=== PATIENT | female | born 1975 | race Hispanic/Latino ===

== ENCOUNTER 2020-09-24 12:49 | Inpatient (IN) | payer OTHER ==
[~2020-09-24] VITALS: Ht 152.4 cm; Wt 101.6 kg
[2020-09-24] VITALS (8 sets, daily range): BP systolic 82–112; BP diastolic 56–77
[2020-09-24] MEDS ORDERED: PANTOPRAZOLE 40 MG/VIAL ONE (13:54)
[2020-09-24] MEDS ORDERED: OCTREOTIDE ACETATE 100 MCG/ML AMP ONE (13:55)
[2020-09-24] MEDS ORDERED: PANTOPRAZOLE 40 MG/VIAL IVP ONE (14:00)
[2020-09-24] MEDS ORDERED: OCTREOTIDE ACETATE 100 MCG/ML AMP IVP ONE (14:00)
[2020-09-24] MEDS ORDERED: OCTREOTIDE ACETATE 200 MCG/ML 5 ML VIAL ONE (14:01)
[2020-09-24 14:08] LABS: BASOPHILS % (AUTO) 0.2 % (0.0-5.0); EOSINOPHILS % (AUTO) 0.2 % (0.0-8.0); HEMATOCRIT 21.7 % (36-48); LYMPHOCYTES % (AUTO) 13.6 % (21.0-51.0); MEAN CORPUSCULAR HEMOGLOBIN 33.7 pg (27.0-33.0); MEAN CORPUSCULAR HGB CONC 32.3 g/dL (32.0-36.0); MEAN CORPUSCULAR VOLUME 104.3 fL (79-99); MONOCYTES % (AUTO) 5.1 % (3.0-13.0); NEUTROPHILS % (AUTO) 79.9 % (40.0-77.0); PLATELET COUNT (AUTO) 56 K/uL (130-400); RED BLOOD CELL COUNT(AUTO) 2.08 MIL/uL (4.00-5.50)
[2020-09-24 14:14] LABS: CREATININE 0.6 mg/dL (0.5-1.5); POTASSIUM 4.5 mmol/L (3.5-5.1)
[2020-09-24 14:19] LABS: ALBUMIN 1.7 g/dL (3.5-5.0); BILIRUBIN,TOTAL 1.6 mg/dL (0.2-1.0); TOTAL PROTEIN, SERUM 4.8 g/dL (6.0-8.3)
[2020-09-24] MEDS: OCTREOTIDE ACETATE 1,250 MCG in DEXTROSE 5%-WATER 250 ML IV SCH ×2 (14:20→21:44)
[2020-09-24] MEDS: PANTOPRAZOLE 40MG INJ 80 MG in 0.9%NACL 100ML 100 ML IV SCH ×2 (14:21→21:44)
[2020-09-24 14:53] LABS: INR 1.7 (0.85-1.15); PROTHROMBIN TIME 17.7 SEC (9.6-11.6)
[2020-09-24 14:54] LABS: PARTIAL THROMBOPLASTIN TIME 37.9 SEC (26.3-35.5)
[2020-09-24] MEDS ORDERED: 0.9%NACL 1000ML 1,000 ML IV ONE (15:00)
[2020-09-24] MEDS ORDERED: ONDANSETRON 4MG INJ IVP ONE (15:00)
[2020-09-24] MEDS ORDERED: ONDANSETRON 4MG INJ IVP SCH (15:30)
[2020-09-24] MEDS ORDERED: FENTANYL CITRATE PF 50 MCG/1 ML 2ML VIAL IVP SCH (15:30)
[2020-09-24] MEDS ORDERED: EPINEPHRINE PF 1MG AMP ONE (16:58)
[2020-09-24] MEDS ORDERED: SIMETHICONE 40 MG/0.6 ML ML ONE (16:59)
[2020-09-24] MEDS ORDERED: SUCCINYLCHOLINE CHLORIDE 20 MG/ML 10 ML VIAL ONE (17:03)
[2020-09-24] MEDS ORDERED: KETAMINE 50MG/ML SYRINGE 50 MG/ML DISP.SYRIN IV ONE (17:03)
[2020-09-24 18:00] LABS: HEMATOCRIT 24.7 % (36-48)
[2020-09-24 19:37] LABS: INR 1.76 (0.85-1.15); PROTHROMBIN TIME 18.2 SEC (9.6-11.6)
[2020-09-24 19:38] LABS: PARTIAL THROMBOPLASTIN TIME 43.6 SEC (26.3-35.5)
[2020-09-24] MEDS ORDERED: PHYTONADIONE 10 MG/1 ML AMP SQ ONE (20:00)
[2020-09-24] MEDS: LACTATED RINGERS 1000ML 1,000 ML IV SCH ×2 (20:00→22:45)
[2020-09-24] MEDS: ZOSYN 3.375GM+NS 50ML 50 ML IV SCH (20:08)
[2020-09-24] MEDS: MORPHINE 2 MG SYG IVP PRN (21:43)
[2020-09-24 22:39] LABS: HEMATOCRIT 21.5 % (36-48); MEAN CORPUSCULAR HEMOGLOBIN 31.1 pg (27.0-33.0); MEAN CORPUSCULAR VOLUME 91.5 fL (79-99); RED BLOOD CELL COUNT(AUTO) 2.35 MIL/uL (4.00-5.50); RED CELL DISTRIBUTION WIDTH 17.6 % (11.0-15.5); WHITE BLOOD COUNT (AUTO) 8.2 K/uL (4.8-10.8)
[2020-09-24 22:51] LABS: CREATININE 0.5 mg/dL (0.5-1.5); MAGNESIUM 1.4 mg/dL (1.80-2.40); POTASSIUM 4.5 mmol/L (3.5-5.1)
[2020-09-24] MEDS ORDERED: CALCIUM GLUC 1GM VIAL IV SCH (23:30)
[2020-09-24] MEDS ORDERED: CALCIUM GLUC 1GM VIAL 1 GM in 0.9%NACL 100ML 100 ML IV ONE (23:30)
[2020-09-24] MEDS ORDERED: CALCIUM GLUC 1GM VIAL IV ONE (23:31)
[2020-09-25] VITALS (21 sets, daily range): BP systolic 99–134; BP diastolic 48–88
[2020-09-25] MEDS: MAGNESIUM 2GM PREMIX 50ML 50 ML IV PRN (00:02)
[2020-09-25] MEDS ORDERED: ONDANSETRON 4MG INJ ONE ×2 (03:04→20:09)
[2020-09-25] MEDS: LACTATED RINGERS 1000ML 1,000 ML IV SCH ×5 (03:33→22:27)
[2020-09-25] MEDS: ZOSYN 3.375GM+NS 50ML 50 ML IV SCH ×3 (04:42→20:14)
[2020-09-25] MEDS: MORPHINE 2 MG SYG IVP PRN ×3 (04:48→19:00)
[2020-09-25 05:11] LABS: HEMATOCRIT 22.8 % (36-48)
[2020-09-25 05:27] LABS: INR 1.49 (0.85-1.15); PROTHROMBIN TIME 15.7 SEC (9.6-11.6)
[2020-09-25 05:28] LABS: PARTIAL THROMBOPLASTIN TIME 35.3 SEC (26.3-35.5)
[2020-09-25 05:34] LABS: ALBUMIN 1.8 g/dL (3.5-5.0); BILIRUBIN,TOTAL 3.4 mg/dL (0.2-1.0); CREATININE 0.6 mg/dL (0.5-1.5); POTASSIUM 4.7 mmol/L (3.5-5.1); TOTAL PROTEIN, SERUM 4.3 g/dL (6.0-8.3)
[2020-09-25 06:57] LABS: MAGNESIUM 1.8 mg/dL (1.80-2.40)
[2020-09-25 08:58] LABS: HEMOGLOBIN A1C 5.2 % (4.0-6.0)
[2020-09-25] MEDS ORDERED: PANTOPRAZOLE 40MG INJ 80 MG in 0.9%NACL 100ML 100 ML IV SCH (09:00)
[2020-09-25 10:07] LABS: HEMATOCRIT 23.6 % (36-48)
[2020-09-25] MEDS: PANTOPRAZOLE 40MG INJ 80 MG in 0.9%NACL 100ML 100 ML IV SCH ×2 (10:26→22:27)
[2020-09-25] MEDS ORDERED: MAGNESIUM 2GM PREMIX 50ML 50 ML IV PRN (16:30)
[2020-09-25 22:49] LABS: HEMATOCRIT 22.6 % (36-48)
[2020-09-25] MEDS ORDERED: ALBUTEROL INHALER 90MCG/INH IH PRN (23:30)
[2020-09-26] VITALS (18 sets, daily range): BP systolic 99–135; BP diastolic 55–85
[2020-09-26] MEDS ORDERED: IPRATROPIUM/ALBUTEROL SULFATE 3 ML SOLUTION IH ONE
[2020-09-26] MEDS: MORPHINE 2 MG SYG IVP PRN ×3 (00:58→19:39)
[2020-09-26] MEDS: LACTATED RINGERS 1000ML 1,000 ML IV SCH ×4 (04:00→19:00)
[2020-09-26 04:23] LABS: MEAN CORPUSCULAR HEMOGLOBIN 30.4 pg (27.0-33.0); MEAN CORPUSCULAR HGB CONC 33.3 g/dL (32.0-36.0); MEAN CORPUSCULAR VOLUME 91.3 fL (79-99); NUCLEATED RED BLOOD CELLS 0.3 % (0.0-0.19); RED BLOOD CELL COUNT(AUTO) 2.3 MIL/uL (4.00-5.50); RED CELL DISTRIBUTION WIDTH 17.8 % (11.0-15.5); WHITE BLOOD COUNT (AUTO) 9.4 K/uL (4.8-10.8)
[2020-09-26] MEDS: ZOSYN 3.375GM+NS 50ML 50 ML IV SCH ×3 (04:42→19:57)
[2020-09-26 05:45] LABS: ALBUMIN 1.8 g/dL (3.5-5.0); BILIRUBIN,TOTAL 1.8 mg/dL (0.2-1.0); CREATININE 0.6 mg/dL (0.5-1.5); POTASSIUM 4.5 mmol/L (3.5-5.1); TOTAL PROTEIN, SERUM 4.4 g/dL (6.0-8.3)
[2020-09-26] MEDS: PANTOPRAZOLE 40MG INJ 80 MG in 0.9%NACL 100ML 100 ML IV SCH ×2 (06:00→16:42)
[2020-09-26 06:13] LABS: HEPATITIS A ANTIBODY IGM Negative (Negative); HEPATITIS B CORE IGM Negative (Negative); HEPATITIS Bs ANTIGEN SCREEN P Negative (Negative)
[2020-09-26] MEDS: MAGNESIUM 2GM PREMIX 50ML 50 ML IV PRN (09:31)
[2020-09-27] VITALS (11 sets, daily range): BP systolic 90–108; BP diastolic 57–71
[2020-09-27] MEDS: PANTOPRAZOLE 40MG INJ 80 MG in 0.9%NACL 100ML 100 ML IV SCH ×3 (02:00→17:24)
[2020-09-27 03:58] LABS: BASOPHILS % (AUTO) 0.3 % (0.0-5.0); EOSINOPHILS % (AUTO) 0.3 % (0.0-8.0); LYMPHOCYTES % (AUTO) 16.4 % (21.0-51.0); MEAN CORPUSCULAR HEMOGLOBIN 31.3 pg (27.0-33.0); MEAN CORPUSCULAR HGB CONC 33.3 g/dL (32.0-36.0); MEAN CORPUSCULAR VOLUME 93.8 fL (79-99); MONOCYTES % (AUTO) 8.8 % (3.0-13.0); NEUTROPHILS % (AUTO) 72.7 % (40.0-77.0); PLATELET COUNT (AUTO) 40 K/uL (130-400); RED BLOOD CELL COUNT(AUTO) 2.08 MIL/uL (4.00-5.50); WHITE BLOOD COUNT (AUTO) 6.8 K/uL (4.8-10.8)
[2020-09-27 04:02] LABS: HEMATOCRIT 19.5 % (36-48)
[2020-09-27 04:10] LABS: ALBUMIN 1.7 g/dL (3.5-5.0); BILIRUBIN,TOTAL 1.4 mg/dL (0.2-1.0); CREATININE 0.5 mg/dL (0.5-1.5); POTASSIUM 3.9 mmol/L (3.5-5.1); TOTAL PROTEIN, SERUM 4.2 g/dL (6.0-8.3)
[2020-09-27 04:11] LABS: INR 1.48 (0.85-1.15); PROTHROMBIN TIME 15.6 SEC (9.6-11.6)
[2020-09-27 04:22] LABS: % IRON SATURATION 23.4 % (22-44)
[2020-09-27] MEDS: LACTATED RINGERS 1000ML 1,000 ML IV SCH ×5 (05:00→21:58)
[2020-09-27] MEDS: MORPHINE 2 MG SYG IVP PRN ×3 (05:26→21:58)
[2020-09-27] MEDS: ZOSYN 3.375GM+NS 50ML 50 ML IV SCH ×3 (08:29→23:56)
[2020-09-27] MEDS ORDERED: COMPOUND IV REFRIGERATED 1 EACH IVSOLN MISC PRN (15:00)
[2020-09-27] MEDS: OCTREOTIDE ACETATE 1,250 MCG in DEXTROSE 5%-WATER 250 ML IV SCH (23:57)
[2020-09-28] VITALS (7 sets, daily range): BP systolic 94–114; BP diastolic 59–75
[2020-09-28] MEDS: LACTATED RINGERS 1000ML 1,000 ML IV SCH ×4 (00:11→16:28)
[2020-09-28] MEDS ORDERED: 0.9%NACL 50ML 50 ML IV ONE ×2 (04:38→20:13)
[2020-09-28 04:39] LABS: BASOPHILS % (AUTO) 0.3 % (0.0-5.0); EOSINOPHILS % (AUTO) 0.8 % (0.0-8.0); HEMATOCRIT 24.1 % (36-48); LYMPHOCYTES % (AUTO) 16.2 % (21.0-51.0); MEAN CORPUSCULAR HEMOGLOBIN 30.7 pg (27.0-33.0); MEAN CORPUSCULAR HGB CONC 32.8 g/dL (32.0-36.0); MEAN CORPUSCULAR VOLUME 93.8 fL (79-99); MONOCYTES % (AUTO) 8.5 % (3.0-13.0); NEUTROPHILS % (AUTO) 72.8 % (40.0-77.0); NUCLEATED RED BLOOD CELLS 0.6 % (0.0-0.19); PLATELET COUNT (AUTO) 35 K/uL (130-400); RED BLOOD CELL COUNT(AUTO) 2.57 MIL/uL (4.00-5.50); RED CELL DISTRIBUTION WIDTH 20.1 % (11.0-15.5); WHITE BLOOD COUNT (AUTO) 6.6 K/uL (4.8-10.8)
[2020-09-28] MEDS: ZOSYN 3.375GM+NS 50ML 50 ML IV SCH ×3 (05:30→20:10)
[2020-09-28] MEDS: PANTOPRAZOLE 40MG INJ 80 MG in 0.9%NACL 100ML 100 ML IV SCH ×2 (10:32→17:25)
[2020-09-28] MEDS: MORPHINE 2 MG SYG IVP PRN ×2 (10:33→20:11)
[2020-09-28] MEDS ORDERED: 0.9%NACL 100ML 100 ML ONE (12:30)
[2020-09-28] MEDS ORDERED: FUROSEMIDE 20 MG TABLET PO ONE (18:00)
[2020-09-28] MEDS ORDERED: SPIRONOLACTONE 25 MG TAB PO SCH (18:00)
[2020-09-28] MEDS: MIDODRINE HCL 5 MG TABLET PO SCH (20:10)
[2020-09-28] MEDS: PANTOPRAZOLE 40 MG/VIAL IVP SCH (20:10)
[2020-09-28] MEDS: TRAZODONE HCL 100 MG TABLET PO SCH (20:10)
[2020-09-29 03:49] LABS: BASOPHILS % (AUTO) 0.3 % (0.0-5.0); EOSINOPHILS % (AUTO) 3.6 % (0.0-8.0); HEMATOCRIT 22.9 % (36-48); LYMPHOCYTES % (AUTO) 23.1 % (21.0-51.0); MEAN CORPUSCULAR HEMOGLOBIN 31.4 pg (27.0-33.0); MEAN CORPUSCULAR HGB CONC 33.2 g/dL (32.0-36.0); MEAN CORPUSCULAR VOLUME 94.6 fL (79-99); MONOCYTES % (AUTO) 8.7 % (3.0-13.0); NEUTROPHILS % (AUTO) 63.4 % (40.0-77.0); NUCLEATED RED BLOOD CELLS 0.6 % (0.0-0.19); PLATELET COUNT (AUTO) 30 K/uL (130-400); RED BLOOD CELL COUNT(AUTO) 2.42 MIL/uL (4.00-5.50); RED CELL DISTRIBUTION WIDTH 20.9 % (11.0-15.5); WHITE BLOOD COUNT (AUTO) 3.3 K/uL (4.8-10.8)
[2020-09-29 03:59] VITALS: BP 105/98
[2020-09-29 03:59] LABS: INR 1.61 (0.85-1.15); PROTHROMBIN TIME 16.8 SEC (9.6-11.6)
[2020-09-29 04:00] LABS: PARTIAL THROMBOPLASTIN TIME 37.9 SEC (26.3-35.5)
[2020-09-29 04:02] LABS: ALBUMIN 1.7 g/dL (3.5-5.0); BILIRUBIN,TOTAL 1.4 mg/dL (0.2-1.0); CREATININE 0.7 mg/dL (0.5-1.5); POTASSIUM 3.6 mmol/L (3.5-5.1); TOTAL PROTEIN, SERUM 4.4 g/dL (6.0-8.3)
[2020-09-29] MEDS ORDERED: 0.9%NACL 50ML 50 ML IV ONE ×2 (04:03→19:31)
[2020-09-29] MEDS: ZOSYN 3.375GM+NS 50ML 50 ML IV SCH ×3 (04:04→20:27)
[2020-09-29 08:05] VITALS: BP 90/51
[2020-09-29] MEDS: PANTOPRAZOLE 40 MG/VIAL IVP SCH ×2 (09:24→20:27)
[2020-09-29] MEDS: SPIRONOLACTONE 25 MG TAB PO SCH (09:25)
[2020-09-29] MEDS: FUROSEMIDE 20 MG TABLET PO SCH (09:25)
[2020-09-29] MEDS: CITALOPRAM 20 MG TABLET PO SCH (09:25)
[2020-09-29] MEDS: MIDODRINE HCL 5 MG TABLET PO SCH ×3 (09:25→20:27)
[2020-09-29 11:19] VITALS: BP 105/73
[2020-09-29] MEDS: MORPHINE 2 MG SYG IVP PRN ×2 (11:19→20:59)
[2020-09-29 15:53] VITALS: BP 95/71
[2020-09-29 19:29] VITALS: BP 129/79
[2020-09-29] MEDS: TRAZODONE HCL 100 MG TABLET PO SCH (20:27)
[2020-09-29 23:51] VITALS: BP 99/57
[2020-09-30] MEDS ORDERED: 0.9%NACL 50ML 50 ML IV ONE ×2 (04:00→19:51)
[2020-09-30 04:01] LABS: BASOPHILS % (AUTO) 0.3 % (0.0-5.0); EOSINOPHILS % (AUTO) 3.8 % (0.0-8.0); HEMATOCRIT 23.8 % (36-48); LYMPHOCYTES % (AUTO) 22.7 % (21.0-51.0); MEAN CORPUSCULAR HEMOGLOBIN 31.3 pg (27.0-33.0); MEAN CORPUSCULAR HGB CONC 32.8 g/dL (32.0-36.0); MEAN CORPUSCULAR VOLUME 95.6 fL (79-99); MONOCYTES % (AUTO) 7.7 % (3.0-13.0); NEUTROPHILS % (AUTO) 64.5 % (40.0-77.0); PLATELET COUNT (AUTO) 30 K/uL (130-400); RED BLOOD CELL COUNT(AUTO) 2.49 MIL/uL (4.00-5.50); RED CELL DISTRIBUTION WIDTH 20.6 % (11.0-15.5); WHITE BLOOD COUNT (AUTO) 3.1 K/uL (4.8-10.8)
[2020-09-30] MEDS: ZOSYN 3.375GM+NS 50ML 50 ML IV SCH ×3 (04:05→20:16)
[2020-09-30 04:17] LABS: ALBUMIN 1.6 g/dL (3.5-5.0); BILIRUBIN,TOTAL 1.3 mg/dL (0.2-1.0); CREATININE 0.6 mg/dL (0.5-1.5); POTASSIUM 3.5 mmol/L (3.5-5.1); TOTAL PROTEIN, SERUM 4.4 g/dL (6.0-8.3)
[2020-09-30 04:27] VITALS: BP 102/72
[2020-09-30 07:30] VITALS: BP 90/56
[2020-09-30] MEDS: PANTOPRAZOLE 40 MG/VIAL IVP SCH ×2 (08:53→20:16)
[2020-09-30] MEDS: SPIRONOLACTONE 25 MG TAB PO SCH (08:53)
[2020-09-30] MEDS: FUROSEMIDE 20 MG TABLET PO SCH (08:53)
[2020-09-30] MEDS: MIDODRINE HCL 5 MG TABLET PO SCH ×3 (08:53→20:16)
[2020-09-30] MEDS: CITALOPRAM 20 MG TABLET PO SCH (08:54)
[2020-09-30 12:00] VITALS: BP 95/66
[2020-09-30] MEDS ORDERED: 0.9%NACL 100ML 0 ML ONE (13:15)
[2020-09-30 15:00] VITALS: BP 90/61
[2020-09-30] MEDS: TRAZODONE HCL 50 MG TAB PO SCH (20:16)
[2020-09-30 20:17] VITALS: BP 109/67
[2020-09-30] MEDS ORDERED: PHYTONADIONE 10 MG/1 ML AMP IM ONE (20:30)
[2020-09-30] MEDS ORDERED: EPOETIN ALFA-EPBX (NON-ESRD) 10,000 UNIT/ML VIAL SQ SCH (20:30)
[2020-09-30] MEDS ORDERED: COMPOUND IV MISC 1 EACH IVSOLN MISC PRN (21:00)
[2020-09-30] MEDS: IRON SUCROSE COMPLEX 300 MG in 0.9%NACL 50ML 50 ML IV SCH (21:50)
[2020-09-30] MEDS ORDERED: PHYTONADIONE 10 MG/1 ML AMP ONE (21:56)
[2020-09-30] MEDS: HYDROMORPHONE 0.5 MG SYG (0.5MG/0.5ML) IVP PRN (22:22)
[2020-09-30 23:57] VITALS: BP 105/65
[2020-10-01] VITALS (7 sets, daily range): BP systolic 99–159; BP diastolic 61–78
[2020-10-01] MEDS: ZOSYN 3.375GM+NS 50ML 50 ML IV SCH (05:00)
[2020-10-01 05:12] LABS: HEMATOCRIT 26.2 % (36-48); MEAN CORPUSCULAR HGB CONC 32.8 g/dL (32.0-36.0); MEAN CORPUSCULAR VOLUME 94.6 fL (79-99); NUCLEATED RED BLOOD CELLS 0.3 % (0.0-0.19); RED BLOOD CELL COUNT(AUTO) 2.77 MIL/uL (4.00-5.50); RED CELL DISTRIBUTION WIDTH 20.8 % (11.0-15.5); WHITE BLOOD COUNT (AUTO) 6.9 K/uL (4.8-10.8)
[2020-10-01 05:25] LABS: ALBUMIN 1.8 g/dL (3.5-5.0); BILIRUBIN,TOTAL 1.7 mg/dL (0.2-1.0); CREATININE 0.6 mg/dL (0.5-1.5); MAGNESIUM 1.5 mg/dL (1.80-2.40); PHOSPHORUS 4.2 mg/dL (2.5-4.9); POTASSIUM 3.6 mmol/L (3.5-5.1); TOTAL PROTEIN, SERUM 4.9 g/dL (6.0-8.3)
[2020-10-01 05:29] LABS: INR 1.59 (0.85-1.15); PROTHROMBIN TIME 16.6 SEC (9.6-11.6)
[2020-10-01 05:30] LABS: PARTIAL THROMBOPLASTIN TIME 46.6 SEC (26.3-35.5)
[2020-10-01] MEDS: PANTOPRAZOLE 40 MG/VIAL IVP SCH ×2 (08:48→20:16)
[2020-10-01] MEDS: SPIRONOLACTONE 25 MG TAB PO SCH (08:49)
[2020-10-01] MEDS: CITALOPRAM 20 MG TABLET PO SCH (08:49)
[2020-10-01] MEDS: MIDODRINE HCL 5 MG TABLET PO SCH ×3 (08:49→21:00)
[2020-10-01] MEDS: IRON SUCROSE COMPLEX 300 MG in 0.9%NACL 50ML 50 ML IV SCH (08:57)
[2020-10-01] MEDS: HYDROMORPHONE 0.5 MG SYG (0.5MG/0.5ML) IVP PRN ×2 (11:03→20:17)
[2020-10-01] MEDS: TRAZODONE HCL 50 MG TAB PO SCH (20:16)
[2020-10-02 03:41] VITALS: BP 107/65
[2020-10-02 08:00] VITALS: BP 105/65
[2020-10-02] MEDS ORDERED: LACTULOSE 20 GM/30 ML UDCUP PO PRN (09:00)
[2020-10-02] MEDS: SPIRONOLACTONE 25 MG TAB PO SCH (10:07)
[2020-10-02] MEDS: MIDODRINE HCL 5 MG TABLET PO SCH ×2 (10:07→14:33)
[2020-10-02] MEDS: FUROSEMIDE 40 MG TABLET PO SCH (10:07)
[2020-10-02] MEDS: CITALOPRAM 20 MG TABLET PO SCH (10:07)
[2020-10-02] MEDS: PANTOPRAZOLE 40 MG/VIAL IVP SCH ×2 (10:07→22:39)
[2020-10-02] MEDS: IRON SUCROSE COMPLEX 300 MG in 0.9%NACL 50ML 50 ML IV SCH (10:10)
[2020-10-02 11:00] VITALS: BP 98/62
[2020-10-02] MEDS: TRAMADOL HCL 50 MG TABLET PO SCH (11:30)
[2020-10-02] MEDS ORDERED: ACETAMINOPHEN WITH CODEINE 1 TAB TAB PO ONE (14:30)
[2020-10-02 16:48] VITALS: BP 110/72
[2020-10-02] MEDS ORDERED: LIDOCAINE 5% TOPICAL PATCH TP ONE (18:30)
[2020-10-02 20:53] VITALS: BP 110/66
[2020-10-02] MEDS: TRAZODONE HCL 50 MG TAB PO SCH (22:39)
[2020-10-02 23:48] VITALS: BP 111/65
[2020-10-03] VITALS (12 sets, daily range): BP systolic 71–102; BP diastolic 25–60
[2020-10-03 05:52] LABS: LYMPHOCYTES % (AUTO) 16.1 % (21.0-51.0); MEAN CORPUSCULAR HEMOGLOBIN 31.3 pg (27.0-33.0); MEAN CORPUSCULAR HGB CONC 31.4 g/dL (32.0-36.0); MEAN CORPUSCULAR VOLUME 99.7 fL (79-99); MONOCYTES % (AUTO) 6.5 % (3.0-13.0); NEUTROPHILS % (AUTO) 75.6 % (40.0-77.0); NUCLEATED RED BLOOD CELLS 37.5 % (0.0-0.19); PLATELET COUNT (AUTO) 37 K/uL (130-400); RED BLOOD CELL COUNT(AUTO) 2.91 MIL/uL (4.00-5.50); RED CELL DISTRIBUTION WIDTH 22.9 % (11.0-15.5); WHITE BLOOD COUNT (AUTO) 1.7 K/uL (4.8-10.8)
[2020-10-03] MEDS ORDERED: ONDANSETRON 4MG INJ IVP PRN (06:00)
[2020-10-03] MEDS: MORPHINE 4 MG SYG IV PRN ×3 (06:00→18:15)
[2020-10-03 06:07] LABS: ALANINE AMINOTRANSFERASE 44 U/L (12-78); ALBUMIN 1.7 g/dL (3.5-5.0); ASPARTATE AMINOTRANSFERASE 98 U/L (10-37); CARBON DIOXIDE 25 mmol/L (21-32); CHLORIDE 112 mmol/L (101-111); CREATININE 0.9 mg/dL (0.5-1.5); GLOMERULAR FILTR. RATE CALC 71 mL/min (>60); GLUCOSE,RANDOM 105 mg/dL (70-105); POTASSIUM 3.8 mmol/L (3.5-5.1); SODIUM SERUM 144 mmol/L (136-145); TOTAL PROTEIN, SERUM 5.1 g/dL (6.0-8.3); UREA NITROGEN, BLOOD 31 mg/dL (7-18)
[2020-10-03 06:08] LABS: AMMONIA < 3 umol/L (11-32); BILIRUBIN,TOTAL < 0.1 mg/dL (0.2-1.0)
[2020-10-03 06:46] LABS: BAND NEUTROPHILS % (MANUAL) 53 % (0-2); LYMPHOCYTES % (MANUAL) 12 % (22-44); MAN.DIFF COMMENT-IMPRESSION MANUAL DIFFERENTIAL; METAMYELOCYTES % 6 % (0-0); MONOCYTES % (MANUAL) 4 % (2-9); PLATELET MORPHOLOGY COMMENT MARKED DECREASE; SEGMENTED NEUTROPHILS % 25 % (40-70)
[2020-10-03] MEDS: FUROSEMIDE 40 MG TABLET PO SCH (10:21)
[2020-10-03] MEDS: PANTOPRAZOLE 40 MG/VIAL IVP SCH ×2 (10:21→22:42)
[2020-10-03] MEDS: SPIRONOLACTONE 25 MG TAB PO SCH (10:21)
[2020-10-03] MEDS: CITALOPRAM 20 MG TABLET PO SCH (10:21)
[2020-10-03] MEDS: IRON SUCROSE COMPLEX 300 MG in 0.9%NACL 50ML 50 ML IV SCH (10:26)
[2020-10-03] MEDS: MIDODRINE HCL 5 MG TABLET PO SCH ×4 (10:32→21:00)
[2020-10-03] MEDS ORDERED: PHARMACY COMMUNICATION MISC SCH (11:30)
[2020-10-03] MEDS ORDERED: COMPOUND PO MISCELLANEOUS 1 EACH MISC MISC PRN (11:30)
[2020-10-03] MEDS: TRAMADOL HCL 50 MG TABLET PO SCH (11:42)
[2020-10-03] MEDS ORDERED: VANCOMYCIN 1G 4 GM, 0.9%NACL 20 ML VIAL 80 ML PO SCH ×2 (12:00)
[2020-10-03] MEDS ORDERED: VANCOMYCIN PROTOCOL PER PHARMACY IV SCH (17:30)
[2020-10-03] MEDS ORDERED: DiphenhydrAMINE HCL 50 MG/ML VIAL IV SCH (17:30)
[2020-10-03] MEDS ORDERED: LACTATED RINGERS 1000ML 500 ML IV ONE (17:30)
[2020-10-03] MEDS ORDERED: ZOSYN 3.375GM +NS 50ML IV SCH (17:30)
[2020-10-03] MEDS ORDERED: CEFTRIAXONE 1G VIAL IVP SCH (17:30)
[2020-10-03] MEDS: 0.9%NACL 50ML IV SCH (17:41)
[2020-10-03 17:49] LABS: HEMATOCRIT 30.2 % (36-48); MEAN CORPUSCULAR HEMOGLOBIN 31.7 pg (27.0-33.0); MEAN CORPUSCULAR HGB CONC 30.5 g/dL (32.0-36.0); MEAN CORPUSCULAR VOLUME 104.1 fL (79-99); NUCLEATED RED BLOOD CELLS 121.5 % (0.0-0.19); PLATELET COUNT (AUTO) 37 K/uL (130-400); RED CELL DISTRIBUTION WIDTH 23.7 % (11.0-15.5); WHITE BLOOD COUNT (AUTO) 1.3 K/uL (4.8-10.8)
[2020-10-03] MEDS ORDERED: VANCOMYCIN 2GM/500ML NS IV ONE ×2 (18:00)
[2020-10-03] MEDS ORDERED: COMPOUND IV REFRIGERATED 1 EACH IVSOLN MISC PRN (18:00)
[2020-10-03 18:24] LABS: ALBUMIN 1.5 g/dL (3.5-5.0); BILIRUBIN,TOTAL 2.6 mg/dL (0.2-1.0); CREATININE 1.3 mg/dL (0.5-1.5); TOTAL PROTEIN, SERUM 4.7 g/dL (6.0-8.3)
[2020-10-03] MEDS ORDERED: NOREPINEPHRINE 4MG/NS 250ML 250 ML IV SCH ×2 (18:30→19:30)
[2020-10-03 18:40] LABS: ABG BASE EXCESS -7.5 mmol/L (-2.0-3.0); ABG HCO3 15.1 mmol/L (21.0-28.0); ABG OXYGEN SATURATION 91.9 % (95.0-99.0); ABG PCO2 25 mmHg (32-45)
[2020-10-03] MEDS ORDERED: ALBUMIN (HUMAN) 25% 100 ML IV ONE (19:00)
[2020-10-03 19:34] LABS: BAND NEUTROPHILS % (MANUAL) 30 % (0-2); LYMPHOCYTES % (MANUAL) 17 % (22-44); MAN.DIFF COMMENT-IMPRESSION MANUAL DIFFERENTIAL; MONOCYTES % (MANUAL) 5 % (2-9); MYELOCYTES % 1 % (0-0); SEGMENTED NEUTROPHILS % 47 % (40-70)
[2020-10-03 19:38] LABS: PLATELET MORPHOLOGY COMMENT MARKED DECREASE
[2020-10-03] MEDS ORDERED: DEXTROSE 50%-WATER 50 ML DISP.SYRIN IV ONE (20:00)
[2020-10-03] MEDS ORDERED: 0.9%NACL 1000ML 1,000 ML IV ONE ×2 (20:21→21:56)
[2020-10-03] MEDS ORDERED: ACETAMINOPHEN 650 MG SUPPOSITORY RC ONE ×2 (20:36→20:52)
[2020-10-03] MEDS ORDERED: DEXTROSE 10%-WATER 1,000 ML IV ONE (20:49)
[2020-10-03] MEDS: TRAZODONE HCL 50 MG TAB PO SCH (21:00)
[2020-10-03] MEDS ORDERED: HYDROCORTISONE SOD SUCCINATE 100 MG/2 ML VIAL IV SCH (21:00)
[2020-10-03 22:16] LABS: BILIRUBIN,URINE Moderate (NEGATIVE); GLUCOSE, URINE (UA) Negative (NEGATIVE); KETONES,URINE Negative (NEGATIVE); LEUKOCYTE ESTERASE ,URINE Small (NEGATIVE); NITRATE,URINE Positive (NEGATIVE); OCCULT BLOOD,URINE Moderate (NEGATIVE); PROTEIN,URINE POS 1+ mg/dL (NEGATIVE)
[2020-10-03 22:19] LABS: APPEARANCE,URINE CLOUDY (CLEAR); COLOR,URINE BROWN (YELLOW)
[2020-10-03 22:46] LABS: AMORPHOUS SEDIMENT,UR Few /LPF (None Seen); BACTERIA,URINE Few /HPF (None Seen); MUCUS,URINE Moderate LPF (None Seen); RBC,URINE 0-1 /HPF (0-1); SQUAMOUS EPITHELIAL CELL,UR Moderate /HPF (0-2); YEAST,URINE BUDDING Few /HPF (None Seen)
[2020-10-04] VITALS (8 sets, daily range): BP systolic 45–115; BP diastolic 24–54
[2020-10-04] MEDS ORDERED: DEXTROSE 50%-WATER 50 ML DISP.SYRIN IV ONE (00:08)
[2020-10-04] MEDS ORDERED: 0.9% NACL 250ML 250 ML ONE ×2 (00:20→02:08)
[2020-10-04] MEDS ORDERED: PHENYLEPHRINE HCL 10 MG/ML 1ML VIAL IV ONE (00:20)
[2020-10-04] MEDS ORDERED: PHENYLEPHRINE HCL 10 MG in 0.9% NACL 250ML 250 ML IV PRN (00:30)
[2020-10-04] MEDS ORDERED: FUROSEMIDE 100MG VIAL ONE (01:03)
[2020-10-04] MEDS: 0.9%NACL 50ML IV SCH (01:30)
[2020-10-04 01:41] LABS: ABG BASE EXCESS -26.8 mmol/L (-2.0-3.0); ABG HCO3 8.2 mmol/L (21.0-28.0); ABG OXYGEN SATURATION 56.1 % (95.0-99.0); ABG PCO2 53 mmHg (32-45)
[2020-10-04] MEDS ORDERED: EPINEPHRINE 1 MG/ML 30ML VIAL IJ ONE (02:08)
[2020-10-04 02:25] LABS: HEMATOCRIT 25.8 % (36-48); MEAN CORPUSCULAR HEMOGLOBIN 31.9 pg (27.0-33.0); MEAN CORPUSCULAR HGB CONC 28.3 g/dL (32.0-36.0); MEAN CORPUSCULAR VOLUME 112.7 fL (79-99); NUCLEATED RED BLOOD CELLS 161.7 % (0.0-0.19); RED BLOOD CELL COUNT(AUTO) 2.29 MIL/uL (4.00-5.50); RED CELL DISTRIBUTION WIDTH 23.1 % (11.0-15.5); WHITE BLOOD COUNT (AUTO) 3.2 K/uL (4.8-10.8)
[2020-10-04 02:28] LABS: CREATININE 1.9 mg/dL (0.5-1.5); MAGNESIUM 1.9 mg/dL (1.80-2.40); POTASSIUM 3.9 mmol/L (3.5-5.1)
[2020-10-04] MEDS ORDERED: SODIUM BICARB 50MEQ 50ML VIAL 100 ML ONE (02:34)
[2020-10-04] MEDS ORDERED: SODIUM BICARB 50MEQ 50ML VIAL 50 ML ONE (02:47)
[2020-10-04] MEDS ORDERED: EPINEPHRINE PF 1MG AMP ONE ×2 (03:21→03:24)
[2020-10-04] MEDS ORDERED: SODIUM BICARB 50MEQ 50ML VIAL 150 ML ONE (03:27)
[2020-10-04] MEDS ORDERED: DEXTROSE 5%-WATER 1,000 ML IV ONE (03:28)
[2020-10-04] MEDS ORDERED: SODIUM BICARB 8.4% 50ML SYRINGE IVP SCH (03:30)
[2020-10-04] MEDS ORDERED: SODIUM BICARB 8.4% 50ML SYRING 150 MEQ in DEXTROSE 5%-WATER 1,000 ML IVP SCH (03:30)
[2020-10-04] MEDS ORDERED: VANCOMYCIN 750MG VIAL IVPB SCH (06:00)
[2020-10-04] MEDS ORDERED: 0.9% NACL 250ML 250 ML IV SCH (06:00)
== END 2020-10-04 03:30 | DRG 871 ==
LOC: EDH 12:49 → EDHIP 12:50 → 2DH 18:17 → 3DH 10-02 01:49 → 2CH 10-03 19:57
PROVIDERS: ADMIT Internal Medicine; ATTEND Internal Medicine
PROC: 30233K1 Transfusion of Nonautologous Frozen Plasma into Peripheral Vein, Percutaneous Approach (ICD-10-PCS; principal; 2020-09-24)
PROC: 30233N1 Transfusion of Nonautologous Red Blood Cells into Peripheral Vein, Percutaneous Approach (ICD-10-PCS; 2020-09-24)
PROC: 30233R1 Transfusion of Nonautologous Platelets into Peripheral Vein, Percutaneous Approach (ICD-10-PCS; 2020-09-24)
PROC: 0DJ08ZZ Inspection of Upper Intestinal Tract, Via Natural or Artificial Opening Endoscopic (ICD-10-PCS; 2020-09-24)
DX: A41.9 Sepsis, unspecified organism (principal); E43 Unspecified severe protein-calorie malnutrition; G93.41 Metabolic encephalopathy; R65.21 Severe sepsis with septic shock; K92.2 Gastrointestinal hemorrhage, unspecified; Z68.42 Body mass index [BMI] 45.0-49.9, adult; F32.1 Major depressive disorder, single episode, moderate; D62 Acute posthemorrhagic anemia; R57.8 Other shock; E66.01 Morbid (severe) obesity due to excess calories; I86.4 Gastric varices; K74.60 Unspecified cirrhosis of liver; F10.20 Alcohol dependence, uncomplicated; F43.10 Post-traumatic stress disorder, unspecified; Z79.899 Other long term (current) drug therapy; Z87.891 Personal history of nicotine dependence; R94.31 Abnormal electrocardiogram [ECG] [EKG]; Z20.822 Contact with and (suspected) exposure to COVID-19
CPT/HCPCS: 31500; 36415; 36600; 43244; 71045; 74018; 74176; 76705; 80048; 80053; 80074; 81001; 82140; 82150; 82330; 82607; 82728; 82746; 82803; 82948; 83036; 83540; 83550; 83605; 83690; 83735; 84100; 84145; 84484; 85014; 85018; 85025; 85027; 85045; 85610; 85730; 86850; 86900; 86901; 86922; 86923; 86927; 87040; 87077; 87088; 87186; 87324; 87635; 92950; 93005; 93970; 93971; 94002; 94640; 97039; C1751; C1894; C9113; G0378; J0171; J0330; J0610; J0696; J1170; J1200; J1720; J1756; J1940; J2270; J2354; J2370; J2405; J2543; J3370; J3430; J3475; J3490; J7030; J7040; J7050; J7060; J7070; J7120; P9016; P9017; P9034; P9046